=== PATIENT | female | born 1995 ===

== ENCOUNTER 2023-05-03 00:12 | Inpatient (IN) | payer OTHER ==
[2023-05-03] MEDS ORDERED: Misoprostol 25 MCG (1/4 of 100 MCG) Tab VAG PRN ×2 (01:01)
[2023-05-03] MEDS ORDERED: Terbutaline 1 MG/ML SDV SUBCUT PRN (01:01)
[2023-05-03] MEDS ORDERED: Sodium Chloride 0.9% 2.5 ML Syringe FLUSH PRN (01:03)
[2023-05-03] MEDS ORDERED: Methylergonovine 0.2 MG/1 ML Amp IM PRN (01:03)
[2023-05-03] MEDS ORDERED: Lidocaine 1% 50 ML MDV INJECT PRN (01:03)
[2023-05-03] MEDS ORDERED: Tranexamic Acid 1,000 MG in Sodium Chloride 0.9% 100 ML IV PRN (01:03)
[2023-05-03] MEDS ORDERED: Carboprost Tromethamine 250 MCG/1 mL Vial IM PRN (01:03)
[2023-05-03] MEDS ORDERED: Water For Irrigation,Sterile 1,000 ML Container IRR PRN (01:03)
[2023-05-03] MEDS ORDERED: Misoprostol 200 MCG Tab PO PRN (01:03)
[2023-05-03] MEDS ORDERED: Sodium Chloride 0.9% 20 ML SDV IV PRN (01:03)
[2023-05-03] MEDS ORDERED: Sodium Chloride 0.9% 10 ML Syringe FLUSH PRN (01:03)
[2023-05-03 01:13] LABS: HEMOGLOBIN 11.5 g/dL (12.0-16.0); MEAN CORPUSCULAR HEMOGLOBIN 29.1 pg (27.0-32.0); MEAN CORPUSCULAR HGB CONC 33.8 g/dL (31.0-37.0); MEAN CORPUSCULAR VOLUME 86.1 fL (80.0-98.0); MEAN PLATELET VOLUME 11.3 fL (7.40-12.00); RED BLOOD CELL COUNT 3.95 M/uL (4.30-5.90); WHITE BLOOD CELL COUNT,WBC 12.34 K/uL (4.0-11.0)
[2023-05-03] MEDS ORDERED: Oxytocin/0.9 % Sodium Chloride 30 UNIT/500 ML BAG IV SCH ×2 (01:15)
[2023-05-03 02:04] LABS: A/G RATIO 0.7 (0.9-1.6); ALANINE AMINOTRANSFERASE,ALT 10 IU/L (14-63); ALBUMIN 2.8 g/dL (3.4-5.0); ALKALINE PHOSPHATASE 131 U/L (46-116); ASPARTATE AMNIOTRANSFERASE,AST 14 IU/L (15-37); BILIRUBIN TOTAL 0.2 mg/dL (0.2-1.0); BLOOD UREA NITROGEN,BUN 12 mg/dL (7.0-18.0); CALCIUM 8.2 mg/dL (8.5-10.1); CARBON DIOXIDE,CO2 21.9 mmol/L (21.0-32.0); CHLORIDE,CL 103 mmol/L (98-107); CREATININE 0.8 mg/dL (0.6-1.0); GLUCOSE RANDOM 78 mg/dL (74-106); POTASSIUM,K 3.8 mmol/L (3.5-5.1); SODIUM,NA 137 mmol/L (136-145)
[2023-05-03 02:06] LABS: ESTIMATED GFR 104 mL/min (>60)
[2023-05-03] MEDS ORDERED: Nalbuphine HCl 10 MG/ 1ML Amp IVPUSH PRN (07:20)
[2023-05-03] MEDS: Lactated Ringers 1,000 ML IV SCH ×3 (07:28→09:36)
[2023-05-03] MEDS ORDERED: Ropivacaine/PF 400 MG/200 ML PCA ONE (08:27)
[2023-05-03] MEDS ORDERED: Bupivacaine 0.5% 10 ML SDV ONE (08:27)
[2023-05-03] MEDS ORDERED: ePHEDrine 50 MG/ML SDV IVPUSH PRN ×2 (08:59)
[2023-05-03] MEDS ORDERED: Phenylephrine HCl 0.5 MG/5 ML AMP IVPUSH PRN (08:59)
[2023-05-03] MEDS ORDERED: Ropivacaine HCl/PF 400 MG in Premix Bag 1 BAG EPIDUR SCH (09:00)
[2023-05-03] MEDS ORDERED: Bisacodyl 10 MG Supp RECTAL PRN (15:19)
[2023-05-03] MEDS ORDERED: Lanolin 100% Cream 7 GM Tube TOP PRN (15:19)
[2023-05-03] MEDS ORDERED: Witch Hazel Medicated Pads 40/Jar TOP PRN (15:19)
[2023-05-03] MEDS ORDERED: Docusate Sodium 100 MG Cap PO PRN (15:19)
[2023-05-03] MEDS ORDERED: Acetaminophen 500 MG Tab PO PRN (15:19)
[2023-05-03] MEDS ORDERED: Ibuprofen 400 MG Tab PO PRN (15:19)
[2023-05-03] MEDS ORDERED: Benzocaine/Menthol 20%-0.5% Spray 78 GM Cannister TOP PRN (15:19)
[2023-05-03] MEDS ORDERED: oxyCODONE 5 MG Tab PO PRN (15:19)
[2023-05-03 15:52] LABS: PH,UMBILICAL ARTERIAL 7.201 (7.18-7.38); PH,UMBILICAL VENOUS 7.263 (7.25-7.45)
[2023-05-03] MEDS: Ibuprofen 800 MG Tab PO PRN (18:59)
[2023-05-03] MEDS: Acetaminophen 500 MG Tab PO PRN (19:00)
[2023-05-04 06:26] LABS: HEMATOCRIT 26.3 % (36.0-46.0); HEMOGLOBIN 8.6 g/dL (12.0-16.0)
[2023-05-04] MEDS: Acetaminophen 500 MG Tab PO PRN (15:55)
[2023-05-05] MEDS: Ibuprofen 800 MG Tab PO PRN (01:35)
[2023-05-07] MEDS ORDERED: ePHEDrine 50 MG/ML SDV IVPUSH PRN ×2 (08:21)
[2023-05-07] MEDS ORDERED: Phenylephrine HCl 0.5 MG/5 ML AMP IVPUSH PRN (08:21)
[2023-05-07] MEDS ORDERED: Ropivacaine HCl/PF 400 MG in Premix Bag 1 BAG EPIDUR SCH (08:30)
== END 2023-05-05 13:53 | disposition home or self-care (01) | DRG 807 ==
LOC: MW.OBCHECK 00:12 → MW.OB 00:13 → MW.OBCHECK 01:02 → MW.OB 01:03 → OBSVTOIN 14:53 → MW.OB 21:30
PROVIDERS: ADMIT Obstetrics & Gynecology; ATTEND Obstetrics & Gynecology
PROC: 10E0XZZ Delivery of Products of Conception, External Approach (ICD-10-PCS; principal; 2023-05-03)
PROC: 0KQM0ZZ Repair Perineum Muscle, Open Approach (ICD-10-PCS; 2023-05-03)
PROC: 3E0P7VZ Introduction of Hormone into Female Reproductive, Via Natural or Artificial Opening (ICD-10-PCS; 2023-05-03)
PROC: 3E0R3BZ Introduction of Anesthetic Agent into Spinal Canal, Percutaneous Approach (ICD-10-PCS; 2023-05-03)
PROC: 00HU33Z Insertion of Infusion Device into Spinal Canal, Percutaneous Approach (ICD-10-PCS; 2023-05-03)
DX: O26.893 Other specified pregnancy related conditions, third trimester (principal); Z37.0 Single live birth; O70.1 Second degree perineal laceration during delivery; O99.02 Anemia complicating childbirth; O42.02 Full-term premature rupture of membranes, onset of labor within 24 hours of rupture; L29.8 Other pruritus; Z3A.39 39 weeks gestation of pregnancy
CPT/HCPCS: 36415; 51702; 59025; 59409; 80053; 82803; 85014; 85018; 85027; 86592; 86850; 86900; 86901; A9270-GY; J2300; J2590; J2795; J3490; J7120